=== PATIENT | female | born 1965 | race American Indian/Alaskan Native ===

== ENCOUNTER 2016-08-09 15:37 | Outpatient (CLI) | payer BC ==
--- NOTE | 2016-08-09 16:27 | Mammography Report ---
BILATERAL DIGITAL SCREENING MAMMOGRAM with CAD: 08/09/16 15:37:00 CLINICAL: Routine screening. COMPARISON: 07/28/15 and 07/03/14 FINDINGS: There are bilateral scattered areas of fibroglandular density.No mass, architectural distortion or suspicious calcifications. IMPRESSION: No mammographic evidence of malignancy. BI-RADS CATEGORY: 1 -- Negative RECOMMENDATION: Routine mammographic screening in one year. COMMENT: Patient follow-up letters are generated by our [employer] application.
== END 2016-08-09 15:38 | disposition home or self-care (01) ==
LOC: SPVWC 15:37
PROVIDERS: ATTEND Obstetrics & Gynecology
DX: Z12.31 Encounter for screening mammogram for malignant neoplasm of breast (principal)
CPT/HCPCS: 77067; G0202

== ENCOUNTER 2017-08-14 14:55 | Outpatient (CLI) | payer BC ==
--- NOTE | 2017-08-14 16:01 | Mammography Report ---
BILATERAL DIGITAL SCREENING MAMMOGRAM with CAD: 08/14/17 14:55:00 CLINICAL: Routine screening. COMPARISON:07/28/15 FINDINGS: The breasts are heterogeneously dense, which may obscure small masses. No mass, architectural distortion or suspicious calcifications. IMPRESSION: No mammographic evidence of malignancy. BI-RADS CATEGORY: 1 - - Negative RECOMMENDATION: Routine mammographic screening in one year. COMMENT: Patient follow-up letters are generated by our [employer] application.
== END 2017-08-14 14:56 | disposition home or self-care (01) ==
LOC: SPVWC 14:55
PROVIDERS: ATTEND Surgery
DX: Z12.31 Encounter for screening mammogram for malignant neoplasm of breast (principal)
CPT/HCPCS: 77067

== ENCOUNTER 2018-08-20 13:51 | Outpatient (CLI) | payer BC ==
--- NOTE | 2018-08-20 14:28 | Mammography Report ---
BILATERAL DIGITAL SCREENING MAMMOGRAM with CAD: 08/20/18 13:51:00 CLINICAL: Routine screening. COMPARISON:08/14/17 FINDINGS: The breasts are heterogeneously dense, which may obscure small masses. No mass, architectural distortion or suspicious calcifications. IMPRESSION: No mammographic evidence of malignancy. BI-RADS CATEGORY: 1 - - Negative RECOMMENDATION: Routine mammographic screening in one year. COMMENT: Patient follow-up letters are generated by our [employer] application.
== END 2018-08-20 13:52 | disposition home or self-care (01) ==
LOC: SPVWC 13:51
PROVIDERS: ATTEND Surgery
DX: Z12.31 Encounter for screening mammogram for malignant neoplasm of breast (principal)
CPT/HCPCS: 77067

== ENCOUNTER 2019-03-10 12:49 | Outpatient (CLI) | payer BC ==
--- NOTE | 2019-03-11 14:42 | Magnetic Resonance Report ---
BILATERAL BREAST MR WITHOUT AND WITH GADOLINIUM INDICATION: Increased risk for breast cancer based on family history. COMPARISONS: 08/20/2018 screening mammogram. TECHNIQUE: Axial 1.0 mm T1 without, axial high-resolution 2.0 mm T2 and axial 1.0 mm dynamic vibrant high-resolution postcontrast T1 fat saturation sequences on a 1.5 Tasha magnet. The examination was p erformed with an 8-channel dedicated [place] breast coil. Post-processing with CAD and subtraction was performed on an [employer] workstation. 15.0 cc of MultiHance was injected without incident for the c ontrast portion of the exam. Consent was obtained prior to the administration of the contrast. FINDINGS: RIGHT BREAST: Minimal background parenchymal enhancement. No mass or suspicious enhancement. No suspi cious lymph nodes. LEFT BREAST: Minimal background parenchymal enhancement. No mass or suspicious enhancement. No suspic ious lymph nodes. IMPRESSION: Negative study. Recommend routine mammographic screening. BI-RADS Category 1: Negative Signer Name: Aurelio Montalvo MD Signed: 03/11/2019 2:37 PM Workstation Name: [id number]
== END 2019-03-10 12:50 | disposition home or self-care (01) ==
LOC: SPVIMAG 12:49
PROVIDERS: ATTEND Surgery
DX: Z85.3 Personal history of malignant neoplasm of breast (principal)
CPT/HCPCS: A9577; C8908; 77049

== ENCOUNTER 2019-08-26 13:39 | Outpatient (CLI) | payer BC ==
--- NOTE | 2019-08-26 14:26 | Mammography Report ---
DIGITAL SCREENING MAMMOGRAM WITH CAD, 08/26/2019 INDICATION: Routine screening mammography. TECHNIQUE: Digital bilateral 2D mammography was obtained in the craniocaudal and mediolateral obliq ue projections. This examination was interpreted with the benefit of Computer-Aided Detection analysi s. COMPARISON: 08/20/2018, 08/14/2017 FINDINGS: Breast Density: The breasts are heterogeneously dense, which may obscure small masses. There is no evidence of dominant mass, suspicious calcifications or architectural distortion in eithe r breast. No interval change. IMPRESSION: No evidence of malignancy. Follow up recommendation: Routine yearly BI-RADS Category 1: Negative. A "normal" or negative report should not discourage follow up or biopsy of a clinically significant f inding. A written summary of these findings will be mailed to the patient. The patient will be entered into a mammography reporting system which will generate a reminder letter for the patient's next appointmen t at the appropriate interval. The [employer] recommends yearly mammograms starting at age 40 and continuing as l christian as a woman is in good health. Breast MRI is recommended for women with an approximate 20-25% or greater lifetime risk of breast cancer, including women with a strong family history of breast or ova luther cancer or who have been treated for Hodgkin's disease. Signer Name: Irina Almonte MD Signed: 08/26/2019 2:22 PM Workstation Name: [id number]
== END 2019-08-26 13:40 | disposition home or self-care (01) ==
LOC: SPVWC 13:39
PROVIDERS: ATTEND Surgery
DX: Z12.31 Encounter for screening mammogram for malignant neoplasm of breast (principal)
CPT/HCPCS: 77067

== ENCOUNTER 2020-08-26 07:55 | Outpatient (CLI) | payer BC ==
--- NOTE | 2020-08-26 09:05 | Mammography Report ---
DIGITAL SCREENING MAMMOGRAM WITH TOMOSYNTHESIS WITH CAD, 08/26/2020 CLINICAL INFORMATION / INDICATION: Routine Screening Mammography. TECHNIQUE: Digital bilateral 2D and 3D mammography with tomosynthesis was obtained in the craniocaud al and mediolateral oblique projections. Computer-Aided Detection (CAD) analysis was used for interp retation of this study. COMPARISON: 08/26/2019, 08/20/2018 FINDINGS: Breast Density: There are scattered areas of fibroglandular density. No dominant mass, suspicious calcifications, or architectural distortion in either breast. IMPRESSION: No mammographic evidence of malignancy. Follow up recommendation: Routine yearly BI-RADS Category 1: Negative. A "normal" or negative report should not discourage follow up or biopsy of a clinically significant f inding. A written summary of these findings will be mailed to the patient. The patient will be entered into a mammography reporting system which will generate a reminder letter for the patient's next appointmen t at the appropriate interval. The [employer] recommends yearly mammograms starting at age 40 and continuing as l christian as a woman is in good health. Breast MRI is recommended for women with an approximate 20-25% or greater lifetime risk of breast cancer, including women with a strong family history of breast or ova luther cancer or who have been treated for Hodgkin's disease. Signer Name: Ash Rivera MD Signed: 08/26/2020 9:00 AM Workstation Name: [id number]
== END 2020-08-26 07:56 | disposition home or self-care (01) ==
LOC: SPVWC 07:55
PROVIDERS: ATTEND Surgery
DX: Z12.31 Encounter for screening mammogram for malignant neoplasm of breast (principal)
CPT/HCPCS: 77063; 77067